=== PATIENT | female | born 2000 ===

== ENCOUNTER 2018-07-29 13:30 | Emergency (ER) | payer OTHER ==
[2018-07-29 13:38] VITALS: BP 113/73
--- NOTE | 2018-07-29 14:35 | ED PDOC ---
HPI: Influenza Time Seen by Provider: 07/29/18 13:40 Chief Complaint: Flu-like Symptoms Chief Complaint (Provider): Flu-like Symptoms History Per: Patient Exam Limitations: no limitations Have you had recent travel within the past 21 days to any of: No Onset/Duration Of Symptoms: Days (x1) Sick Contacts (Context): None Additional complaint(s):: Patient is a 17 y/o female with no significant past medical history who presents to the ED for evaluation of flu-like symptoms, onset yesterday afternoon. Patient admits to fever, chills, throat pain, headache, dizziness, nausea, congestion, and a mild, dry cough. Patient denies recent travel, sick contacts, ear pain, vomiting, diarrhea, abdominal pain, chest pain, or urinary symptoms. Patient states she last took two tablets of Tylenol at 11:00 today. Of note, patient's last period was on 07/04/2018. PCP: None Provided Past Medical History Reviewed: Historical Data, Nursing Documentation, Vital Signs Vital Signs: Last Vital Signs Temp 101.9 F H 07/29/18 13:33 Pulse 115 H 07/29/18 13:33 Resp 18 07/29/18 13:33 BP 113/73 07/29/18 13:33 Pulse Ox 97 07/29/18 13:33 - Medical History PMH: No Chronic Diseases - Surgical History Surgical History: No Surg Hx - Family History Family History: States: Unknown Family Hx - Home Medications Home Medications: Ambulatory Orders Medication Instructions Recorded Acetaminophen [Acetaminophen 8 650 mg PO Q8 PRN #21 tablet.er 07/29/18 Hour] Ondansetron ODT [Zofran ODT] 4 mg PO Q6 PRN #12 odt 07/29/18 Oseltamivir Cap [Tamiflu] 1 cap PO BID #10 cap 07/29/18 Phenylephrine HCl/Prometh HCl 5 ml PO Q6 PRN #120 ml 07/29/18 [Promethazine-Phenylephrine Syr] RX: Ibuprofen [Motrin Tab] 600 mg PO Q6 PRN #30 tab 07/29/18 - Allergies Allergies/Adverse Reactions: Allergies Allergy/AdvReac Type Severity Reaction Status Date / Time No Known Allergies Allergy Verified 07/29/18 13:32 Review of Systems ROS Statement: Except As Marked, All Systems Reviewed And Found Negative Constitutional: Positive for: Fever, Chills ENT: Positive for: Nose Congestion, Throat Pain. Negative for: Ear Pain Cardiovascular: Negative for: Chest Pain Respiratory: Positive for: Cough (mild, dry) Gastrointestinal: Positive for: Nausea. Negative for: Vomiting, Abdominal Pain, Diarrhea Genitourinary Female: Negative for: Dysuria, Hematuria Neurological: Positive for: Headache, Dizziness Physical Exam - Reviewed Nursing Documentation Reviewed: Yes Vital Signs Reviewed: Yes - Physical Exam Comments: GENERAL APPEARANCE: Patient is awake, alert, oriented x 3, in no acute distress. Nontoxic appearing. SKIN: Warm, dry; (-) cyanosis. ENMT: Mucous membranes moist. Pharynx: clear, uvula midline (+) Faint pharyngeal erythema. (-) exudates. TM: (-) bulging and erythema bilaterally. Nares: (+) clear rhinorrhea. NECK: Supple, FROM (-) rigidity (-) tenderness, (-) stiffness, (-) l ymphadenopathy. CHEST AND RESPIRATORY: (-) rales, (-) rhonchi, (-) wheezes; breath sounds equal bilaterally. Respirations even and nonlabored. HEART AND CARDIOVASCULAR: (-) irregularity ABDOMEN AND GI: Soft (-) distention (-) tenderness. Bowel sounds active x4 (-) guarding, (-) rebound, (-) palpable masses, (-) CVA tenderness. EXTREMITIES: (-) deformity NEURO AND PSYCH: Mental status as above; (-) focal findings. Gait: steady. Speech: clear. (-) facial asymmetry. peat shredder tender II-XII: grossly intact. Pupils equal and reactive. EOMI and painless. Medical Decision Making Medical Decision Making: Time: 1358 Impression: Fever, congestion, throat pain, and headache; probable viral syndrome, to consider influenza Plan: Test Chest Two Views (PA/Lat) [Rad] Motrin Tab 600 mgPO Reglan 10 mg PO Throat Culture Influenza A B Rapid Strep Group A Antigen Re-evaluation Time: 1435 Flu positive. In light of findings, Tamiflu ordered. Pending repeat vitals. CXR: no acute disease as read by Cas LUTZ [id number] Repeat temp: 98.0 oral Repeat HR: 84 On re-evaluation, patient reports improvement of symptoms. On exam, patient remains AAOx3, in no acute distress. Lungs clear to auscultation, cardiac RRR, abdomen soft, non-tender, repeat neuro exam shows no focal findings. Vitals stable. Educated on antipyretic administration. Fluids encouraged. Lab/Diagnostic results d/w the patient in great detail. Diagnosis of fever, headache, throat pain, cough, influenza d/w the patient. Based on history, exam and diagnostic results, plan will be for outpatient fo llow up with PMD/clinic. Patient instructed to follow-up with pmd / referral provided / the clinic in 1- 2 days without fail. Advised to take medication as prescribed. Return to the emergency room at any time for any new or worsening symptoms. Patient states she fully agrees with and understands discharge instructions. States that she agrees with the plan and disposition. Verbalized and repeated discharge instructions and plan. I have given the patient opportunity to ask any additional questions. Scribe Attestation: Documented by Grabiel Velazquez, acting as a scribe for JACI Hanley. Provider Scribe Attestation: All medical record entries made by the Scribe were at my direction and p ersonally dictated by me. I have reviewed the chart and agree that the record accurately reflects my personal performance of the history, physical exam, medical decision making, and the department course for this patient. I have also personally directed, reviewed, and agree with the discharge instructions and disposition. - Laboratory Results Urine POC: Negative - ECG O2 Sat by Pulse Oximetry: 97 (RA) Pulse Ox Interpretation: Normal Disposition - Clinical Impression Clinical Impression: Influenza, Headache, Fever, Cough - Patient ED Disposition Is Patient to be Admitted: No Counseled Patient/Family Regarding: Studies Performed, Diagnosis, Need For Followup, Rx Given - Disposition Referrals: [facility] [Outside] Disposition: Routine/Home Disposition Time: 14:45 Condition: STABLE Additional Instructions: The emergency medical care you received today was directed at your acute symptoms. If you were prescribed any medication, please fill it and take as directed. It may take several days for your symptoms to resolve. Return to the Emergency Department if your symptoms worsen, do not improve, or if you have any other problems. Please contact your doctor in 2 days for re-evaluation and follow up / or call one of the physicians/clinics you have been referred to that are listed on the Patient Visit Information form that is included in your discharge packet. Bring any paperwork you were given at discharge with you along with any medications you are taking to your follow up visit. Our treatment cannot replace ongoing medical care by a primary care provider (PCP) outside of the emergency department. Prescriptions: Acetaminophen [Acetaminophen 8 Hour] 650 mg PO Q8 PRN #21 tablet.er PRN Reason: Fever >100.4 F RX: Ibuprofen [Motrin Tab] 600 mg PO Q6 PRN #30 tab PRN Reason: pain/fever Ondansetron ODT [Zofran ODT] 4 mg PO Q6 PRN #12 odt PRN Reason: Nausea/Vomiting Oseltamivir Cap [Tamiflu] 1 cap PO BID #10 cap Phenylephrine HCl/Prometh HCl [Promethazine-Phenylephrine Syr] 5 ml PO Q6 PRN #120 ml PRN Reason: Cough Instructions: Flu, Headache, Adult, Cough, Adult (DC), Cough, Runny Nose, and the Common Cold (DC), Fever, Adult (DC), When to Worry About a Fever Forms: [employer] (Romanian) Print Language: CONGOLESE - POA Present On Arrival: None Results - Lab Results Lab Results: 07/29/18 07/29/18 14:10 14:10 Influenza Typ A,B (EIA) Pos for influenza a H Grp A Beta Strep Ag Negative
[2018-07-29 15:01] VITALS: PULSE 84; RESP 16; TEMP 98
[2018-07-29 15:06] VITALS: O2SAT 97
--- NOTE | 2018-07-29 15:14 | RAD ---
Date of service: 07/29/2018 HISTORY: fever, cough COMPARISON: No prior. TECHNIQUE: Chest PA and lateral FINDINGS: LUNGS: No active pulmonary disease. PLEURA: No significant pleural effusion identified. No pneumothorax apparent. CARDIOVASCULAR: No aortic atherosclerotic calcification present. Normal cardiac size. No pulmonary vascular congestion. OSSEOUS STRUCTURES: No significant abnormalities. VISUALIZED UPPER ABDOMEN: Normal. OTHER FINDINGS: None. IMPRESSION: No active disease.
== END 2018-07-29 15:30 | disposition home or self-care (01) ==
LOC: H.ER 13:30
DX: J11.1 Influenza due to unidentified influenza virus with other respiratory manifestations (principal); R51 Headache; R50.9 Fever, unspecified; R11.0 Nausea